=== PATIENT | male | born 1940 | race Hispanic/Latino ===

== ENCOUNTER 2018-01-23 00:36 | Emergency (ER) | payer MEDICARE, MEDICAID ==
[2018-01-23 00:36] VITALS: BMI 29.5
--- NOTE | 2018-01-23 01:53 | ED PDOC ---
HPI: Trauma/Fall - HPI Time Seen by Provider: 01/23/18 00:45 Chief Complaint (Nursing): Trauma Chief Complaint (Provider): Trauma History Per: Patient History/Exam Limitations: no limitations Onset/Duration Of Symptoms: Hrs Additional Complaint(s): 77 year old male with long psychiatric history, dementia and multiple falls in the past from a nursing home, presents to the ER for an evaluation of fall. as per ems, he was being bathed by staff and he slipped inside of the bathtub hitting his head at midnight. Denies loss of consciousness. no fever/vomiting or other concerns. apparently pt is at baseline and responds to verbal stimuli but is usually pretty somnolent. pt denies complaints at this time. no dizziness, or headache. Past Medical History Reviewed: Historical Data, Nursing Documentation, Vital Signs Vital Signs: Last Vital Signs Temp 98.2 F 01/23/18 00:39 Pulse 77 01/23/18 00:39 Resp 18 01/23/18 00:39 BP 114/62 01/23/18 00:39 Pulse Ox 98 01/23/18 00:39 - Medical History PMH: Anemia, CAD, CHF, Dementia, HTN, Hypercholesterolemia, Hyperlipidemia, Parkinson's Disease, Schizophrenia Denies: Chronic Kidney Disease - Surgical History Surgical History: Appendectomy (10 yrs old) - Family History Family History: States: Unknown Family Hx - Social History Current smoker - smoking cessation education provided: No Alcohol: None Drugs: Denies - Immunization History Hx Tetanus Toxoid Vaccination: No Hx Influenza Vaccination: No Hx Pneumococcal Vaccination: No - Home Medications Home Medications: Ambulatory Orders Medication Instructions Recorded RX: ARIPiprazole [Abilify] 1 tab PO HS 04/28/14 RX: Aspirin 81 tab PO DAILY 04/28/14 RX: Benztropine Mesylate 1 tab PO HS 04/28/14 RX: Donepezil HCl 1 tab PO DAILY 04/28/14 RX: Fish Oil [Prolinic] 1 tab PO BID 04/28/14 RX: Haloperidol [Haldol] 1 tab PO HS 04/28/14 RX: Ammonium Lactate 12% 1 gm EXT BID #1 bottle 08/28/14 [Lac-Hydrin 12% Lotion (225 g)] RX: Atorvastatin [Lipitor] 10 mg PO DAILY 09/19/17 RX: Cholecalciferol (Vitamin D3) 1,000 unit PO DAILY 09/19/17 [Vitamin D3] RX: Memantine HCl/Donepezil HCl 1 each PO DAILY 09/19/17 [Namzaric 28 mg-10 mg Capsule] RX: Oxybutynin [Ditropan Tab] 5 mg PO DAILY 09/19/17 RX: Tamsulosin [Flomax] 0.4 mg PO DAILY 09/19/17 RX: Bicalutamide 50 mg PO DAILY 01/10/18 RX: Multivitamins [Hexavitamin] 1 tab PO DAILY 01/10/18 - Allergies Allergies/Adverse Reactions: Allergies Allergy/AdvReac Type Severity Reaction Status Date / Time No Known Allergies Allergy Verified 01/09/18 09:03 Review of Systems ROS Statement: Except As Marked, All Systems Reviewed And Found Negative Neurological: Negative for: Headache, Dizziness, Other (LOC) Psych: Negative for: Suicidal ideation (homicidal ideation) Physical Exam - Reviewed Nursing Documentation Reviewed: Yes Vital Signs Reviewed: Yes - Physical Exam Appears: Positive for: Non-toxic, No Acute Distress Head Exam: Positive for: ATRAUMATIC, NORMAL INSPECTION, NORMOCEPHALIC Skin: Positive for: Normal Color, Warm, Dry. Negative for: Rash Eye Exam: Positive for: EOMI, Normal appearance, PERRL ENT: Positive for: Normal ENT Inspection Neck: Positive for: Normal, Painless ROM, Supple. Negative for: Decreased ROM Cardiovascular/Chest: Positive for: Regular Rate, Rhythm. Negative for: Murmur Respiratory: Positive for: Normal Breath Sounds. Negative for: Decreased Breath Sounds, Wheezing, Respiratory Distress Gastrointestinal/Abdominal: Positive for: Normal Exam, Soft. Negative for: Tenderness, Guarding, Rebound Back: Positive for: Normal Inspection. Negative for: L CVA Tenderness, R CVA Tenderness Extremity: Positive for: Normal ROM. Negative for: Tenderness, Pedal Edema, Deformity Neurologic/Psych: Positive for: Alert, Oriented (x3), Other (pt somnolent but responsive to verbal and painful stimuli. ). Negative for: Motor/Sensory Deficits - Laboratory Results Result Diagrams: 01/23/18 01:55 01/23/18 01:55 - ECG O2 Sat by Pulse Oximetry: 98 (RA) Pulse Ox Interpretation: Normal Medical Decision Making Medical Decision Making: Time: 0133 Initial Impression: fall, rule out intracranial injury. Initial Plan: Cervical Spine w/o Contrast [CT] Head w/o Contrast [CT] EKG CMP CBC w/ Differential Reevaluation Time:214 CT scan of the head. CLINICAL HISTORY: Trauma. TECHNIQUE: Multiple axial CT images were obtained through the brain without IV contrast material. COMMENTS: There is normal configuration of sella turcica. There are no intra or extra- axial collections. There is no mass effect or midline shift. There is no evidence of hematoma formation. No hydrocephalus is present. The ventricles are symmetrical. No abnormal calcifications are present. There is diffuse age-appropriate cerebellar and cerebral atrophy with proportionally dilated ventricles and cortical sulci. There are bilateral periventricular and subcortical white matter hypolucencies compatible with mild chronic microvascular disease. Otherwise, no significant focal abnormalities are seen either in the posterior fossa or supratentorial compartment. IMPRESSION: 1. Age-appropriate cerebellar and cerebral atrophy. 2. Mild chronic microvascular disease. 3. No evidence of acute intracranial pathology. Time: 216 CT scan of the cervical spine without contrast. Indication: Trauma. Pain. Technique: Axial CT scan images without contrast. Reformatted coronal and sagittal images Findings: There are diffuse spondylotic changes. Findings are demonstrated by disc space narrowing, osteophyte formation and degenerative endplate changes. Facet joint arthropathy is noted. No fracture or dislocation is seen. No aggressive bone lesion is noted. Moderate multilevel degenerative disc disease more prominent from C3-C7 levels. Impression: Spondylosis. Multilevel facet joint arthropathy. No acute bone pathology. Repeat EKG: normal sinus rhythm with 60bpm and lab present no abnormalities. pt comfortable throughout ER stay. no complaints. labs reviewed. other than some anemia, the labs are basically normal. pt comfortbale, was able to walk in the ER. will obtain transportation for way back to the nursing home Upon provider reevaluation patient is feeling better, is medically stable, and requires no further treatment in the ED at this time. Patient will be discharged back to [facility]. Counseling was provided and all questions were answered regarding diagnosis and need for follow up with PMD. There is agreement to discharge plan. Return if symptoms persist or worsen. Scribe Attestation: Documented by Tomi Daley, acting as a scribe for Emory Veliz MD. Provider Scribe Attestation: All medical record entries made by the Scribe were at my direction and personally dictated by me. I have reviewed the chart and agree that the record accurately reflects my personal performance of the history, physical exam, medical decision making, and the department course for this patient. I have also personally directed, reviewed, and agree with the discharge instructions and disposition. Disposition - Clinical Impression Clinical Impression: Fall - Patient ED Disposition Is Patient to be Admitted: No Counseled Patient/Family Regarding: Studies Performed, Diagnosis, Need For Followup - Disposition Disposition: Routine/Home Disposition Time: 05:00 Condition: IMPROVED Additional Instructions: follow up with your doctor in 1-2 days for reevaluation return to the ED with any worsening or concerning symptoms Instructions: Preventing Falls in the Older Adult Forms: [employer] (Belarusian)
[2018-01-23 02:20] LABS: BASO # 0.1 K/uL (0.0-0.2); BASO % 0.8 % (0.0-2.0); EOS # 0.2 K/uL (0.0-0.7); EOS % 2.7 % (0.0-4.0); HEMOGLOBIN 11.8 g/dL (12.0-18.0); LYMPH # 1.5 K/uL (1.0-4.3); LYMPH % 22.1 % (20.0-40.0); MEAN CELL VOLUME 103.8 fl (80.0-94.0); MEAN CORPUSCULAR HEMOGLOBIN 35.9 pg (27.0-31.0); MEAN CORPUSCULAR HGB CONC 34.6 g/dL (33.0-37.0); MEAN PLATELET VOLUME 9.4 fl (7.2-11.7); MONO # 0.5 K/uL (0.0-0.8); MONO % 6.8 % (0.0-10.0); NEUT # 4.7 K/uL (1.8-7.0); NEUT % 67.6 % (50.0-75.0); NRBC % 0.1 % (0.0-0.0); RBC 3.29 Mil/uL (4.40-5.90); RED CELL DISTRIBUTION WIDTH 13.6 % (11.5-14.5); WHITE BLOOD COUNT 6.9 K/uL (4.8-10.8)
[2018-01-23 02:24] LABS: BLOOD UREA NITROGEN 16 mg/dl (9-20); CALCIUM 8.7 mg/dL (8.4-10.2); GFR NON-AFRICAN AMERICAN > 60
[2018-01-23 02:25] LABS: ALT/SGPT 32 U/L (21-72); AST/SGOT 47 U/L (17-59)
[2018-01-23 10:39] VITALS: BP 153/56; PULSE 59; RESP 18; TEMP 97.8; O2SAT 99
--- NOTE | 2018-01-23 11:30 | CT ---
Date of service: 01/23/2018 PROCEDURE: CT HEAD WITHOUT CONTRAST. HISTORY: Posttraumatic contusion back of head. COMPARISON: None available. TECHNIQUE: Axial computed tomography images were obtained through the head/brain without intravenous contrast. Supplemental Coronal and Sagittal projections created and reviewed. Radiation dose: Total exam DLP = 999.34 mGy-cm. This CT exam was performed using one or more of the following dose reduction techniques: Automated exposure control, adjustment of the mA and/or kV according to patient size, and/or use of iterative reconstruction technique. FINDINGS: HEMORRHAGE: No intracranial hemorrhage. BRAIN: No mass effect or edema. Cortical and cerebellar atrophy, periventricular small vessel disease. VENTRICLES: Unremarkable. No hydrocephalus. CALVARIUM: Unremarkable. PARANASAL SINUSES: Unremarkable as visualized. No significant inflammatory changes. MASTOID AIR CELLS: Unremarkable as visualized. No inflammatory changes. OTHER FINDINGS: None. IMPRESSION: No acute intracranial abnormalities. No significant findings to account for the clinical presentation. Concordant results (preliminary interpretation) provided by [employer]. Procedure Completed: 01:50. Preliminary Report: Dictated and Authenticated: 02:15. Final Interpretation: 11:26.
--- NOTE | 2018-01-23 11:48 | CT ---
Date of service: 01/23/2018 PROCEDURE: CT Cervical Spine without contrast HISTORY: fall COMPARISON: Below TECHNIQUE: Axial computed tomography images were obtained of the cervical spine without the use of intravenous contrast. Coronal and sagittal reformatted images were created and reviewed. Radiation dose: Total exam DLP = 375.36 mGy-cm. This CT exam was performed using one or more of the following dose reduction techniques: Automated exposure control, adjustment of the mA and/or kV according to patient size, and/or use of iterative reconstruction technique. FINDINGS: VERTEBRAE: No fracture identified. Mild rotary scoliosis. DISCS/SPINAL CANAL/NEURAL FORAMINA: Disc degenerative changes C6-7. Non marginal osteophyte formation noted in mid lower cervical spine PARASPINAL SOFT TISSUES: Unremarkable. OTHER FINDINGS: None. IMPRESSION: No acute findings related to/accounting for the clinical presentation. Additional benign and/or incidental findings described above. Concordant results (preliminary interpretation) provided by [employer]. Procedure Completed: 01:52. Preliminary Report: Dictated and Authenticated: 02:17. Final Interpretation: 11:43. January 23, 2018
--- NOTE | 2018-01-23 19:11 | CARD ---
APPROVED REPORT Date of service: 01/23/2018 EKG Measurement Heart [id number] <Conclusion> Normal sinus rhythm Normal ECG
== END 2018-01-23 07:43 ==
LOC: H.ER 00:36
DX: S09.90XA Unspecified injury of head, initial encounter (principal); W19.XXXA Unspecified fall, initial encounter; Y92.002 Bathroom of unspecified non-institutional (private) residence as the place of occurrence of the external cause; F03.90 Unspecified dementia, unspecified severity, without behavioral disturbance, psychotic disturbance, mood disturbance, and anxiety; G20 Parkinson's disease; D64.9 Anemia, unspecified; E78.00 Pure hypercholesterolemia, unspecified; I25.10 Atherosclerotic heart disease of native coronary artery without angina pectoris; R29.6 Repeated falls

== ENCOUNTER 2018-02-18 03:45 | Observation (INO) | payer MEDICARE, MEDICAID ==
[2018-02-18 03:56] VITALS: BMI 32.5
--- NOTE | 2018-02-18 04:31 | ED PDOC ---
HPI: Trauma/Fall - HPI Time Seen by Provider: 02/18/18 04:01 Chief Complaint (Nursing): Trauma Chief Complaint (Provider): fall from bed w/ head trauma History Per: Patient History/Exam Limitations: other (dementia, Parkinson's disease) Onset/Duration Of Symptoms: Hrs Additional Complaint(s): 77 y/o M with hx of dementia, Parkinson's, CAD, CHF, HL, HTN, DM-II and hx of multiple falls most recently seen here in ED on 01/23/18 where he had head CT and cervical spine CT that were negative for acute abnormality. Pt was brought in by EMS after falling out of bed tonight. Pt admits to hitting the back of his head but denies LOC. He admits to having some dizziness but is unsure of whether he has had palpitations. Admits to head and neck pain. No visual changes, weakn ess, C/P, SOB. Hx is somewhat unreliable as patient is A&Ox2, disoriented to time. Patient has no health care proxy. Dr. Huff is patient's primary care doctor and would like patient admitted for recurrent falls as this has happened on multiple occasions. - Fall Fall:Prior To Injury: Slipped. denies: Passed Out Past Medical History Reviewed: Historical Data, Nursing Documentation, Vital Signs Vital Signs: Last Vital Signs Temp 98.5 F 02/18/18 03:55 Pulse 74 02/18/18 03:55 Resp 18 02/18/18 03:55 BP 99/51 L 02/18/18 03:55 Pulse Ox 96 02/18/18 03:55 - Medical History PMH: Anemia, Benign Prostatic Hyperplasia, CAD, CHF, Dementia, HTN, Hypercholesterolemia, Hyperlipidemia, Parkinson's Disease, Schizophrenia Denies: Chronic Kidney Disease - Surgical History Surgical History: Appendectomy (10 yrs old) - Family History Family History: States: Unknown Family Hx - Immunization History Hx Tetanus Toxoid Vaccination: No Hx Influenza Vaccination: No Hx Pneumococcal Vaccination: No - Home Medications Home Medications: Ambulatory Orders Medication Instructions Recorded ARIPiprazole [Abilify] 1 tab PO HS 04/28/14 Aspirin 81 tab PO DAILY 04/28/14 Benztropine Mesylate 1 tab PO HS 04/28/14 Donepezil HCl 1 tab PO DAILY 04/28/14 Fish Oil [Prolinic] 1 tab PO BID 04/28/14 Haloperidol [Haldol] 1 tab PO HS 04/28/14 Ammonium Lactate 12% [Lac-Hydrin 1 gm EXT BID #1 bottle 08/28/14 12% Lotion (225 g)] Atorvastatin [Lipitor] 10 mg PO DAILY 09/19/17 Cholecalciferol (Vitamin D3) 1,000 unit PO DAILY 09/19/17 [Vitamin D3] Memantine HCl/Donepezil HCl 1 each PO DAILY 09/19/17 [Namzaric 28 mg-10 mg Capsule] Oxybutynin [Ditropan Tab] 5 mg PO DAILY 09/19/17 Tamsulosin [Flomax] 0.4 mg PO DAILY 09/19/17 Bicalutamide 50 mg PO DAILY 01/10/18 Multivitamins [Hexavitamin] 1 tab PO DAILY 01/10/18 - Allergies Allergies/Adverse Reactions: Allergies Allergy/AdvReac Type Severity Reaction Status Date / Time No Known Allergies Allergy Verified 02/18/18 03:55 Review of Systems ROS Statement: Except As Marked, All Systems Reviewed And Found Negative Constitutional: Negative for: Fever Eyes: Negative for: Vision Change Cardiovascular: Negative for: Chest Pain, Palpitations Respiratory: Negative for: Shortness of Breath Gastrointestinal: Negative for: Nausea, Vomiting Musculoskeletal: Positive for: Neck Pain Neurological: Positive for: Headache Physical Exam - Reviewed Nursing Documentation Reviewed: Yes Vital Signs Reviewed: Yes - Physical Exam Appears: Positive for: Non-toxic Head Exam: Positive for: ATRAUMATIC Skin: Positive for: Normal Color Eye Exam: Positive for: Normal appearance Neck: Positive for: Painless ROM Cardiovascular/Chest: Positive for: Regular Rate, Rhythm, Other (distant heart sounds). Negative for: Murmur Respiratory: Positive for: Normal Breath Sounds Pulses-Dorsalis Pedis (L): 2+ Pulses-Dorsalis Pedis (R): 2+ Gastrointestinal/Abdominal: Positive for: Normal Exam Back: Positive for: Normal Inspection. Negative for: Vertebral Tenderness, Decreased ROM Extremity: Positive for: Normal ROM, Swelling (2+ pitting edema to shins B/L. ), Other Neurologic/Psych: Positive for: Alert, Motor/Sensory Deficits, Mood/Affect (flat). Negative for: Oriented (oriented to person and place, not to time), Aphasia, Facial Droop - ECG ECG: Positive for: Interpreted By Me ECG Rhythm: Positive for: Normal QRS, Normal ST Segment, Sinus Rhythm Interpretation Of ECG: sinus w/ PACs, HR 69, no ischemic change. O2 Sat by Pulse Oximetry: 96 Medical Decision Making Medical Decision Making: EKG Cervical spine and head CT w/o contrast urine dip orthostatic BP: negative CBC CMP Cervical spine CT: Spondylosis. Multilevel facet joint arthropathy. No acute bone pathology. Head CT w/o contrast: 1. Age-appropriate cerebellar and cerebral atrophy. 2. Mild chronic microvascular disease. 3. No evidence of acute intracranial pathology. I spoke with patient's group facility who stated that patient has no HCP currently. Dr. Huff is patient's PMD and would like patient admitted for recurrent falls. Disposition - Clinical Impression Clinical Impression: Recurrent falls - Patient ED Disposition Is Patient to be Admitted: Yes Discussed With : Chandan Huff Doctor Will See Patient In The: Hospital - Disposition Disposition: Transfer of Care Disposition Time: 06:12 Condition: FAIR
[2018-02-18 06:38] LABS: BASO % 0.8 % (0.0-2.0); EOS # 0.2 K/uL (0.0-0.7); EOS % 3.5 % (0.0-4.0); HEMOGLOBIN 11.4 g/dL (12.0-18.0); LYMPH # 1.7 K/uL (1.0-4.3); MEAN CELL VOLUME 104.3 fl (80.0-94.0); MEAN CORPUSCULAR HEMOGLOBIN 35.1 pg (27.0-31.0); MEAN CORPUSCULAR HGB CONC 33.7 g/dL (33.0-37.0); MEAN PLATELET VOLUME 8.9 fl (7.2-11.7); MONO # 0.5 K/uL (0.0-0.8); MONO % 9.8 % (0.0-10.0); NEUT # 2.9 K/uL (1.8-7.0); NEUT % 53.9 % (50.0-75.0); NRBC % 0.1 % (0.0-0.0); RBC 3.23 Mil/uL (4.40-5.90); RED CELL DISTRIBUTION WIDTH 13.7 % (11.5-14.5); WHITE BLOOD COUNT 5.3 K/uL (4.8-10.8)
[2018-02-18 06:48] LABS: ALB/GLOB RATIO 1.3 (1.0-2.1); ALBUMIN 4.1 g/dL (3.5-5.0); ALT/SGPT 31 U/L (21-72); AST/SGOT 33 U/L (17-59); BLOOD UREA NITROGEN 24 mg/dl (9-20); CALCIUM 9.1 mg/dL (8.4-10.2); GFR NON-AFRICAN AMERICAN 59
--- NOTE | 2018-02-18 08:28 | CT ---
Date of service: 02/18/2018 PROCEDURE: CT HEAD WITHOUT CONTRAST. HISTORY: fall from bed onto back of head COMPARISON: None available. TECHNIQUE: Axial computed tomography images were obtained through the head/brain without intravenous contrast. Radiation dose: Total exam DLP = 829.93 mGy-cm. This CT exam was performed using one or more of the following dose reduction techniques: Automated exposure control, adjustment of the mA and/or kV according to patient size, and/or use of iterative reconstruction technique. FINDINGS: HEMORRHAGE: No intracranial hemorrhage. BRAIN: Good corticomedullary differentiation is seen. Reiterated diffuse cerebral atrophy and chronic microangiopathy. No suspicious extra-axial fluid collection is identified and the midline brain anatomy appears grossly nonfocal as imaged. No mass effect identified. VENTRICLES: Unremarkable. No hydrocephalus. CALVARIUM: Unremarkable. PARANASAL SINUSES: Unremarkable as visualized. No significant inflammatory changes. MASTOID AIR CELLS: Unremarkable as visualized. No inflammatory changes. OTHER FINDINGS: None. IMPRESSION: Age related neuro degenerative changes are reiterated without acute intracranial findings as discussed above. Follow up CT or MRI are available if clinically warranted. Concordant preliminary report from [facility], 02/18/2018.
--- NOTE | 2018-02-18 08:38 | CT ---
Date of service: 02/18/2018 PROCEDURE: CT Cervical Spine without contrast HISTORY: fall onto back of head w/ neck pain COMPARISON: None available. TECHNIQUE: Axial computed tomography images were obtained of the cervical spine without the use of intravenous contrast. Coronal and sagittal reformatted images were created and reviewed. Radiation dose: Total exam DLP = 358.12 mGy-cm. This CT exam was performed using one or more of the following dose reduction techniques: Automated exposure control, adjustment of the mA and/or kV according to patient size, and/or use of iterative reconstruction technique. FINDINGS: VERTEBRAE: No fracture. Normal alignment. Sclerotic focus stable at the central C6 vertebral body. Advanced multilevel anterior spondylosis appreciated concentrated at the mid to inferior levels with C1-2 degenerative changes reiterated. The odontoid process appears intact as well as the craniocervical junction. DISCS/SPINAL CANAL/NEURAL FORAMINA: No significant stenosis appreciate C2-3, C3-4 and C4-5 with limited disc bulging appreciate C3-4 and C4-5. At C5-6, there is a borderline mild to moderate left paracentral disc herniation potentially present. This appearance may be due to artifact. Lateral osteophytes result in moderate left degenerative neural foraminal stenosis with none at the right. No bony central stenosis. At C6-7 a disc osteophyte complex is appreciated without significant bony central canal stenosis. Borderline degenerative left neural foraminal stenosis with none at the right. At C7-T1, there is no stenosis appreciated. PARASPINAL SOFT TISSUES: Prevertebral and paraspinal soft tissues appear diffusely unremarkable. OTHER FINDINGS: None. IMPRESSION: 1. Questionable left paracentral disc herniation C5-6. Follow-up elective MRI is advised for better characterization of this level as this is not a definitive finding. 2. Limited multilevel neural foraminal stenoses, degenerative. 3. No fracture or spondylolisthesis appreciated on acute basis. Discordant preliminary report divided by [facility]. Disc herniation is not suggested in preliminary report prepared 02/18/2018.
--- NOTE | 2018-02-18 12:04 | CARD ---
APPROVED REPORT Date of service: 02/18/2018 EKG Measurement Heart [id number] <Conclusion> Normal sinus rhythm Normal Electrocardiogram
[2018-02-18] MEDS ORDERED: Multivitamin With Minerals Tab PO SCH (12:15)
[2018-02-18] MEDS ORDERED: MEMANTINE HCL PO SCH (12:15)
[2018-02-18] MEDS ORDERED: DONEPEZIL HCL PO SCH ×2 (12:15)
[2018-02-18] MEDS: Cholecalciferol 1,000 INTLU TAB PO SCH (14:23)
[2018-02-18] MEDS ORDERED: FISH OIL PO SCH (17:00)
--- NOTE | 2018-02-19 00:15 | DS ---
HISTORY OF PRESENT ILLNESS: This is a 77-year-old male with longstanding psychiatric history. Currently lives in a shelter. The patient was brought to emergency room for evaluation on the day of admission after a fall. The patient has been having frequent falls lately. He was not in any cardiopulmonary distress, and the patient is confused and disoriented at baseline. The patient is also not in any cardiopulmonary distress, and he had no apparent weakness noticed by the caregivers. Other review of system is not reliable as the patient is confused. PAST MEDICAL HISTORY: History of hypertension, questionable history of cancer of prostate, , hypercholesterolemia, and stasis dermatitis. SOCIAL HISTORY: The patient lives in a shelter. No history of smoking, EtOH, or substance abuse. FAMILY HISTORY: Noncontributory. MEDICATIONS: Reviewed and ordered as per MAR. PHYSICAL EXAMINATION: GENERAL: The patient is not in any cardiopulmonary distress. VITAL SIGNS: Blood pressure 102/61, temperature 97.4, respiratory rate 16, and pulse 62. HEENT: Pupils equal, reactive to light. Normal-appearing mucosa of the conjunctivae, oropharynx, and nasal membrane mucosa. NECK: Supple. No JVD. No carotid bruit. No lymph node. No thyromegaly. CHEST AND LUNGS: Bilateral symmetrical expansion. Good air exchange. No rales. No rhonchi. CARDIOVASCULAR SYSTEM: PMI not localized. S1, S2. No additional sounds. ABDOMEN: Normoactive bowel sounds. No tenderness. No organomegaly. No masses. EXTREMITIES: No cyanosis, no clubbing, no edema. CENTRAL NERVOUS SYSTEM: Awake, but confused and disoriented and moves all extremities equally. ASSESSMENT: 1. Frequent falls, likely secondary to Parkinson's like disease with unsteady and shuffling gait. 2. Dementia with frequent mixed hypercholesteremia. 3. Stasis dermatitis. 4. Questionable diagnosis of cancer of prostate. PLAN: Urology consult and follow recommendations. Re-order the patient's home medications. Physical therapy. Discussed with Verónica, the patient's case finisher regarding the guardianship process. Chandan Huff MD
[2018-02-19] MEDS ORDERED: Pneumococcal 23-Valent Vaccine IM ONE (07:16)
[2018-02-19] MEDS ORDERED: Multivitamin With Minerals Tab PO SCH (09:00)
[2018-02-19] MEDS ORDERED: Enoxaparin 40 mg Syringe SC SCH (09:00)
[2018-02-19] MEDS: Cholecalciferol 1,000 INTLU TAB PO SCH (09:22)
--- NOTE | 2018-02-19 12:13 | CP.PCM.CON ---
History of Present Illness - History of Present Illness History of Present Illness: consult requested for capacity to make decision pt is 77 ys old male with previous psychiatric diagnosis of schizophrenia, unable to obtain much history as pt is confused on interviewing the pt he is calm and cooperative, good eye contact, speech underproductive and soft, mood reported fine , appropriate affect, denied suicidal or homicidal ideation, denied perceptual disturbances, non elicited pt oriented to person only not oriented to place or time unable to verbalize the reason why he is admitted to the hospital, unable to allen balize the nature of treatment he is supposed to receive and unable to verbalize risks or benefits Past Patient History - Past Medical History & Family History Past Medical History?: Yes - Past Social History Smoking Status: Former Smoker - CARDIAC Hx Cardiac Disorders: Yes - PULMONARY Hx Respiratory Disorders: No - NEUROLOGICAL Hx Neurological Disorder: Yes - HEENT Hx HEENT Problems: No - RENAL Hx Chronic Kidney Disease: Yes - ENDOCRINE/METABOLIC Hx Endocrine Disorders: No - HEMATOLOGICAL/ONCOLOGICAL Hx AIDS: No Hx Anemia: Yes Hx Human Immunodeficiency Virus (HIV): No - INTEGUMENTARY Hx Dermatological Problems: Yes Hx Cellulitis: Yes Other/Comment: Dermatitis. - MUSCULOSKELETAL/RHEUMATOLOGICAL Hx Musculoskeletal Disorders: Yes Hx Falls: Yes - GASTROINTESTINAL Hx Gastrointestinal Disorders: Yes Hx Colitis: Yes - GENITOURINARY/GYNECOLOGICAL Hx Genitourinary Disorders: Yes Hx Urinary Tract Infection: Yes Other/Comment: Overactive bladder. - PSYCHIATRIC Hx Psychophysiologic Disorder: Yes Hx Substance Use: No - SURGICAL HISTORY Hx Appendectomy: Yes (10 yrs old) - ANESTHESIA Hx Anesthesia: Yes Hx Anesthesia Reactions: No Meds Allergies/Adverse Reactions: Allergies Allergy/AdvReac Type Severity Reaction Status Date / Time No Known Allergies Allergy Verified 02/18/18 03:55 - Medications Medications: Current Medications Aspirin (Aspirin Chewable) 81 mg PO DAILY [facility] Last Admin: 02/19/18 09:22 Dose: 81 mg Atorvastatin Calcium (Lipitor) 10 mg PO DAILY [facility] Last Admin: 02/19/18 09:24 Dose: 10 mg Benztropine Mesylate (Cogentin) 1 mg PO HS [facility] Last Admin: 02/18/18 21:56 Dose: 1 mg Bicalutamide (Casodex) 50 mg PO DAILY [facility] Last Admin: 02/19/18 09:23 Dose: 50 mg Cholecalciferol (Vitamin D) 1,000 intlu PO DAILY [facility] Last Admin: 02/19/18 09:22 Dose: 1,000 intlu Enoxaparin Sodium (Lovenox) 40 mg SC DAILY [facility]; Protocol Last Admin: 02/19/18 09:23 Dose: 40 mg Haloperidol (Haldol) 1 mg PO HS [facility] Last Admin: 02/18/18 21:56 Dose: 1 mg Home Med (Donepezil Hcl [Donepezil Hcl]) 1 tab PO DAILY [facility] Home Med (Fish Oil [Prolinic]) 1 tab PO BID [facility] Home Med (Memantine Hcl/Donepezil Hcl [Namzaric 28 Mg-10 Mg Capsule]) 1 each PO DAILY [facility] Multivitamins/Minerals (Therapeutic-M Tab) 1 tab PO DAILY [facility] Last Admin: 02/19/18 09:22 Dose: 1 tab Oxybutynin Chloride (Ditropan Tab) 5 mg PO DAILY [facility] Last Admin: 02/19/18 09:22 Dose: 5 mg Results - Vital Signs Recent Vital Signs: Last Vital Signs Temp 97.7 F 02/19/18 07:52 Pulse 57 L 02/19/18 07:52 Resp 20 02/19/18 07:52 BP 114/67 02/19/18 07:52 Pulse Ox 96 02/19/18 07:52 - Labs Result Diagrams: 02/18/18 06:26 02/18/18 06:26 Assessment & Plan - Assessment and Plan (Free Text) Assessment: schizophrenia residual Plan: pt at current mental status does not have the capacity to make decision for his medical treatment continue with haldol and cogentin at the current dose
--- NOTE | 2018-02-19 15:24 | CP.PCM.CON ---
History of Present Illness - History of Present Illness History of Present Illness: FUll neurology consult dictated. Please see report. Impression: Patient with dementia and schizophrenia, who is here most likely for sundowning. PLan; 1. Start seroquel 25 mg po qhs 2. Cleared for return to custodial. Dr. faust Past Patient History - Past Medical History & Family History Past Medical History?: Yes - Past Social History Smoking Status: Former Smoker - CARDIAC Hx Cardiac Disorders: Yes - PULMONARY Hx Respiratory Disorders: No - NEUROLOGICAL Hx Neurological Disorder: Yes - HEENT Hx HEENT Problems: No - RENAL Hx Chronic Kidney Disease: Yes - ENDOCRINE/METABOLIC Hx Endocrine Disorders: No - HEMATOLOGICAL/ONCOLOGICAL Hx AIDS: No Hx Anemia: Yes Hx Human Immunodeficiency Virus (HIV): No - INTEGUMENTARY Hx Dermatological Problems: Yes Hx Cellulitis: Yes Other/Comment: Dermatitis. - MUSCULOSKELETAL/RHEUMATOLOGICAL Hx Musculoskeletal Disorders: Yes Hx Falls: Yes - GASTROINTESTINAL Hx Gastrointestinal Disorders: Yes Hx Colitis: Yes - GENITOURINARY/GYNECOLOGICAL Hx Genitourinary Disorders: Yes Hx Urinary Tract Infection: Yes Other/Comment: Overactive bladder. - PSYCHIATRIC Hx Psychophysiologic Disorder: Yes Hx Substance Use: No - SURGICAL HISTORY Hx Appendectomy: Yes (10 yrs old) - ANESTHESIA Hx Anesthesia: Yes Hx Anesthesia Reactions: No Meds Allergies/Adverse Reactions: Allergies Allergy/AdvReac Type Severity Reaction Status Date / Time No Known Allergies Allergy Verified 02/18/18 03:55 - Medications Medications: Current Medications Aspirin (Aspirin Chewable) 81 mg PO DAILY [facility] Last Admin: 02/19/18 09:22 Dose: 81 mg Atorvastatin Calcium (Lipitor) 10 mg PO DAILY [facility] Last Admin: 02/19/18 09:24 Dose: 10 mg Benztropine Mesylate (Cogentin) 1 mg PO HS [facility] Last Admin: 02/18/18 21:56 Dose: 1 mg Bicalutamide (Casodex) 50 mg PO DAILY [facility] Last Admin: 02/19/18 09:23 Dose: 50 mg Cholecalciferol (Vitamin D) 1,000 intlu PO DAILY [facility] Last Admin: 02/19/18 09:22 Dose: 1,000 intlu Enoxaparin Sodium (Lovenox) 40 mg SC DAILY [facility]; Protocol Last Admin: 02/19/18 09:23 Dose: 40 mg Haloperidol (Haldol) 1 mg PO [facility] Last Admin: 02/18/18 21:56 Dose: 1 mg Home Med (Donepezil Hcl [Donepezil Hcl]) 1 tab PO DAILY [facility] Home Med (Fish Oil [Prolinic]) 1 tab PO BID [facility] Home Med (Memantine Hcl/Donepezil Hcl [Namzaric 28 Mg-10 Mg Capsule]) 1 each PO DAILY [facility] Multivitamins/Minerals (Therapeutic-M Tab) 1 tab PO DAILY [facility] Last Admin: 02/19/18 09:22 Dose: 1 tab Oxybutynin Chloride (Ditropan Tab) 5 mg PO DAILY [facility] Last Admin: 02/19/18 09:22 Dose: 5 mg Results - Vital Signs Recent Vital Signs: Last Vital Signs Temp 98.2 F 02/19/18 12:23 Pulse 65 02/19/18 12:23 Resp 20 02/19/18 12:23 BP 110/67 02/19/18 12:23 Pulse Ox 94 L 02/19/18 12:23 - Labs Result Diagrams: 02/18/18 06:26 02/18/18 06:26
[2018-02-19 16:39] VITALS: BP 104/65; PULSE 60; RESP 16; TEMP 97.8; O2SAT 97
--- NOTE | 2018-02-20 02:22 | DS ---
REASON FOR ADMISSION: This is a 77-year-old male with longstanding psychiatric history who was admitted after a fall. COURSE OF HOSPITALIZATION: The patient was admitted to medical floor, and he was placed in neuro check. Neuro and psychiatric consult was called. The patient was started on physical therapy, and he was able to eat well. Guardianship process was being started by [facility]. The patient was discharged home to follow up with guardianship process and continue physical therapy as an outpatient. FINAL DIAGNOSES: 1. Frequent falls, dysfunctional gait. 2. Overactive bladder. 3. Benign prostate hypertrophy. 4. Hypercholesterolemia. [facility] MD Refugio
--- NOTE | 2018-02-20 06:39 | CON ---
DATE: 02/19/2018 Neurology consult called by Dr. Huff. SUBJECTIVE: The patient is a 77-year-old male, who has a [facility]. The patient had dementia as well, who was brought to the hospital for unknown reason. On admission, the patient was alert and awake, not oriented to any signs or symptoms. There were no focal deficits noted. PAST MEDICAL HISTORY: He has high cholesterol, osteoporosis, psychosis, and schizophrenia. PAST SURGICAL HISTORY: Unknown. FAMILY HISTORY AND SOCIAL HISTORY: correction resident. REVIEW OF SYSTEMS: Not able to be determined. ALLERGIES: NO KNOWN DRUG ALLERGIES. PHYSICAL EXAMINATION: GENERAL: The patient is awake. HEENT: Pupils equal, round and reactive to light. There is no facial asymmetry. NEUROLOGICAL: He is able to move all extremities. He follows commands that are one-step. He cannot name or repeat, but I am not sure if he is understanding my questions. Toes are downgoing. Gait was not tested. LABORATORY DATA: As follows: Hemoglobin 11.4, hematocrit 30.7. Sodium 142, potassium 4.6, BUN 24, creatinine 1.2. All other labs are normal. CAT scan of the head was done and showed atrophy. IMPRESSION: This is a 77-year-old male with severe dementia and schizophrenia. He may be sundowning, this could be a reason why his confusion was thought to be a reason for admission. PLAN: Consider Seroquel 25 mg at bedtime. Thank you for this interesting consultation. Dhaval Conteh MD [id number]
== END 2018-02-19 17:20 | disposition home or self-care (01) ==
LOC: H.ER 03:45 → INTOOBSV 05:58 → H.ERHOLD 05:58 → H.TEL 09:25
PROVIDERS: ADMIT Internal Medicine; ATTEND Internal Medicine
DX: R26.81 Unsteadiness on feet (principal); R29.6 Repeated falls; G20 Parkinson's disease; F03.90 Unspecified dementia, unspecified severity, without behavioral disturbance, psychotic disturbance, mood disturbance, and anxiety; F05 Delirium due to known physiological condition; F20.5 Residual schizophrenia; I25.10 Atherosclerotic heart disease of native coronary artery without angina pectoris; I87.2 Venous insufficiency (chronic) (peripheral); I11.0 Hypertensive heart disease with heart failure; I50.9 Heart failure, unspecified; N32.81 Overactive bladder; E11.8 Type 2 diabetes mellitus with unspecified complications; E78.5 Hyperlipidemia, unspecified; E78.00 Pure hypercholesterolemia, unspecified; M47.892 Other spondylosis, cervical region; M81.0 Age-related osteoporosis without current pathological fracture; N40.0 Benign prostatic hyperplasia without lower urinary tract symptoms; D64.9 Anemia, unspecified; Z23 Encounter for immunization; Z91.81 History of falling; Z87.440 Personal history of urinary (tract) infections; Z87.891 Personal history of nicotine dependence
CPT/HCPCS: 70450; 72125; 80053; 85025; 90732; 93005; 97162; 99285; G0009; G0378; G8978; G8979; J1650